=== PATIENT | male | born 1960 | race Caucasian/White ===

== ENCOUNTER → 2018-10-24 | Outpatient (CLI) | payer OTHER ==
[~2018-10-24] VITALS: Ht 175.3 cm; Wt 85.7 kg
[~2018-10-24] MED LIST: ASPIR 8181 MG PO; DOXYCYCLINE 10100 MG PO; GLUCOPHAGE XR750 MG PO; GOLYTELY4000 M1 GT; IMDUR 30 MG TAB30 M1 PO; PERCOCET 5-3251 EACH PO; ZOCOR20 MG PO; ZOFRAN ODT4 MG PO
[2018-10-24 08:39] VITALS: BP 156/77
--- NOTE | 2018-10-24 08:39 | EKG ---
[address] [place] [employer] [place] [address] ELECTROCARDIOGRAM REPORT Name: EMORY KAUR Room #: REG CLJuana Jennings#: [id number] ������������������ Admission: 10/24/18 ������������������ Attend Phys: Mahendra Brandon Discharge: ������������������ Date of : 58 Report #: [id number] ����������������������������������������������������������������� [id number] THIS REPORT FOR: //name// [facility] Test Date: 2018-10-24 Test Time: 08:33:48 Pat Name: EMORY KAUR Department: Room: Gender: Barrel Straightener: Devin VU : 1960 Requested By: Mahendra Brandon Order Number: [id number] MD: Mulugeta Arreaga Measurements Intervals [place] Rate: 79 P: 51 [place]: 165 QRS: 24 QRSD: 93 T: 32 QT: 368 QTc: 422 Interpretive Statements Sinus rhythm No significant abnormality Compared to ECG 08/17/2010 08:33:43 No significant change was found Electronically Signed On 10-24-2018 8:39:41 CDT by Mulugeta Arreaga [email or web address] ��������������������������������������������� <ELECTRONICALLY SIGNED> ���������������������������������������� By: Mulugeta Arreaga MD, [facility] ��������������������������������������������� 10/24/18 0839 0833 2 Mulugeta Arreaga MD, FACC /EPI
--- NOTE | 2018-11-06 12:47 | CATHLAB ---
[facility] [address] [place] [address] INVASIVE PROCEDURE REPORT Name: EMORY KAUR Room #: REG Dick#: [id number] ������������� Admission: 10/24/18 ������������� Attend Phys: Mahendra Dodd Discharge: ��� ������������� ��� Date of : 58 Date of Service: 11/06/18 1247 �� Report #: [id number] �������� ��������������������������������������������[id number] THIS REPORT FOR: //name// APPROVED REPORT Study performed: 10/24/2018 10:27:59 Patient Details Patient Status: Out-Patient Room #: The patient is a 58 year-old male Event Personnel Mahendra Brandon Effervescent Salts Compounder, Magui Angel RN RN, Sophie Ramon RN RN, Emory Vincent RTR Kolton Boyer Valisa Monitor, Elsa Corbin, RTR, FORMING ROLL OPERATOR, Monitor Procedures Performed Art Access - R femoral artery* Left Heart Cath w/or w/o Coronaries [id number] [facility] [address] Initial Mod Sed Same Phys/QHP Gr5y 510271 51641 Mod Sed Same Phys/QHP Ea 754344 FFR 1308400 FFR Hemostasis w/ Mynx supervision of conscious sedation Indication Positive stress test, Chest pain Procedure Narrative The Right Groin^ was infiltrated with 1% Lidocaine subcutaneous anesthesia. A PINNACLE 4FR Sheath #[id number] sheath was inserted into the RFA^. Coronary angiography was performed using coronary diagnostic catheters. The right coronary system was accessed and visualized with a JR4 catheter. The left coronary system was accessed and visualized with a JL4 catheter. The left ventricle was accessed and visualized with a angled Pigtail catheter. Left ventricular/Aortic Valve gradient assessed via catheter pullback. Closure device was deployed with a 6 Fr Aeris Pressure Wire 175 cm [id number]. There was no hematoma. Intraoperative Conscious Sedation Sedation start time: 10:32 Case end Time: 11:10 Versed 1 mg Fluoro Time: 7.40 minutes Dose: DAP 7688.00 cGycm2 1301 mGy Contrast Type and Amount: Omnipaque 45 ml [facility] [address] [place] [address] INVASIVE PROCEDURE REPORT Name: EMORY KAUR Room #: REG [facility].#: [id number] ������������� Admission: 10/24/18 ������������� Attend Phys: Mahendra Dodd Discharge: ��� ������������� ��� Date of : 58 Date of Service: 11/06/18 1247 �� Report #: [id number] �������� ��������������������������������������������[id number] Coronary Angiography The patient's coronary anatomy is right dominant. Diagnostic Cath Left Main Normal origin and moderate caliber free of high-grade disease. Bifurcates into left anterior descending left circumflex coronary artery. LAD Moderate caliber type II vessel which rapidly tapers towards the apex to a string caliber. Proximally there is a rapid taper initially after its origin which is long and segment and then reconstitutes somewhat. The region appears to be less than 50% stenosis compared to the distal portion but more high-grade compared to the proximal portion of the LAD. Diagonal 1 Small-caliber vessel free of high-grade stenosis Diagonal 2 Wall caliber vessel free of high-grade stenosis Diagonal 3 Small-caliber vessel free of high-grade lesion Circumflex All nondominant vessel which gives rise to small early marginal branches. There is a branch that appears to be a ramus in this view that'll be described below Right Coronary Large-caliber dominant vessel without significant high-grade lesions noted. There is a mild tapering beyond the acute margin which is concentric. R PDA Small to moderate caliber vessel free of high-grade disease Ramus Small-caliber vessel with a proximal 50% lesion. In courses along the lower left aspect of the ventricle bifurcating into small branches free of high-grade disease Left Ventriculography Left Ventriculography was not performed. IVUS Fractional Flow [place] was performed on the proximal left anterior descending artery segment vessel. A 6 [place] JL 4 Guide Catheter was used to engage the left coronary ostium. A 0.014 FFR Interventional Guidewire was used. IVUS Findings Fractional flow reserve without adenosine was utilized with a minimum result of 0.93 across the long segment of the proximal LAD coronary Hemodynamics The aortic pressure is 148/77 mmHg with a mean of 91 mmHg. The left [facility] [address] [place] [address] INVASIVE PROCEDURE REPORT Name: EMORY KAUR Room #: REG HOWIE Jennings#: [id number] ������������� Admission: 10/24/18 ������������� Attend Phys: Mahendra Dodd Discharge: ��� ������������� ��� Date of : 58 Date of Service: 11/06/18 1247 �� Report #: [id number] �������� ��������������������������������������������[id number] ventricular pressure is 149/14 mmHg with a mean of mmHg. The left ventricular end diastolic pressure is 23 mmHg. PCI Technique Lesion A LAUNCHER 6FR JL4 #[id number] Guide Catheter was used to engage the ostium. A [facility] Pressure Wire 175 cm [id number] Interventional Guidewire was used to cross the lesion. COMMENTS PRE FFR-.97 POST FFR-.93 (WITHOUT ADENOSINE) PCI Technique Lesion The lesion stenosis prior to intervention was proximal left anterior descending artery segment% with DANIELA 6 [place] JL 4 flow. A left coronary Guide Catheter was used to engage the 0.014 FFR ostium. BALLOON DILATION A Balloon catheter Fractional flow reserve without adenosine was utilized with a minimum result of 0.93 across the long segment of the proximal LAD coronary was inserted and inflated up to misael for seconds. Conclusion 1. Coronary disease moderate 2. Normal hemodynamics 3. Non-significant FFR result of 0.93 across the left anterior descending artery lesion Recommendations Cardiac Risk Reduction Program Aggressive Medical Therapy ��������������������������������������������� <ELECTRONICALLY SIGNED> ���������������������������������������� By: Mahendra Brandon MD ��������������������������������������������� 11/06/18 1247 1247 124 Mahendra Brandon MD /INF
== END | disposition home or self-care (01) ==
LOC: CATH 07:58
DX: I25.10 Atherosclerotic heart disease of native coronary artery without angina pectoris (principal); E11.9 Type 2 diabetes mellitus without complications; F17.210 Nicotine dependence, cigarettes, uncomplicated; Z87.442 Personal history of urinary calculi; Z86.73 Personal history of transient ischemic attack (TIA), and cerebral infarction without residual deficits; Z79.82 Long term (current) use of aspirin; Z79.899 Other long term (current) drug therapy; Z98.890 Other specified postprocedural states

== ENCOUNTER → 2019-08-02 | Outpatient (CLI) | payer OTHER ==
[~2019-08-02] MED LIST changes: +COUMADIN 5 MG TA5 M1 PO; +FERREX 150 PLU1 EAC1 PO; +LIPITOR40 MG PO; +LOPRESSOR25 PO; +PACERONE 200 M200 M1 PO
== END ==
LOC: SJCVCIMAG 11:01
DX: R94.31 Abnormal electrocardiogram [ECG] [EKG] (principal); I25.10 Atherosclerotic heart disease of native coronary artery without angina pectoris; E78.5 Hyperlipidemia, unspecified; E11.9 Type 2 diabetes mellitus without complications; Z95.2 Presence of prosthetic heart valve; Z79.899 Other long term (current) drug therapy; Z87.891 Personal history of nicotine dependence

== ENCOUNTER → 2019-08-06 | Outpatient (CLI) | payer OTHER | LOC: RAD 09:09 | DX: R06.02 Shortness of breath (principal); R06.00 Dyspnea, unspecified; I25.10 Atherosclerotic heart disease of native coronary artery without angina pectoris ==

== ENCOUNTER → 2021-04-22 | Outpatient (CLI) | payer BC, OTHER | LOC: SJCVCIMAG 15:01 | PROVIDERS: ATTEND Internal Medicine | DX: I37.1 Nonrheumatic pulmonary valve insufficiency (principal); I42.9 Cardiomyopathy, unspecified ==